=== PATIENT | female | born 1990 ===

== ENCOUNTER 2018-05-07 22:44 | Emergency (ER) | payer OTHER ==
[2018-05-07 22:53] VITALS: BP 103/64; PULSE 86; RESP 14; TEMP 98.7; O2SAT 97
--- NOTE | 2018-05-07 23:02 | C.PDOC ---
History Of Present Illness 27 yo female come in for evaluation of Left ankle pain developed few hours [employer] after sustained twisting injury. Pt reports, pain is localized over lateral malleolus of Left ankle, worse with weight bearing. Otherwise, pt denies complete fall, head injury, neck pain, denies deformity, weakness, swelling, sensory or vascular deficits to Left ankle and foot. Ambulate to ED w/ assistance of crutches. Time Seen by Provider: 05/07/18 22:53 Chief Complaint (Nursing): Lower Extremity Problem/Injury History Per: Patient Past Medical History Reviewed: Historical Data, Nursing Documentation, Vital Signs Vital Signs: Last Vital Signs Temp 98.7 F 05/07/18 22:49 Pulse 86 05/07/18 22:49 Resp 14 05/07/18 22:49 BP 103/64 05/07/18 22:49 Pulse Ox 97 05/07/18 23:06 - Medical History PMH: No Chronic Diseases Family History: States: No Known Family Hx - Social History Hx Alcohol Use: Yes Hx Substance Use: No - Immunization History Hx Tetanus Toxoid Vaccination: No Hx Influenza Vaccination: No Hx Pneumococcal Vaccination: No Review Of Systems Except As Marked, All Systems Reviewed And Found Negative. Constitutional: Negative for: Fever, Chills Cardiovascular: Negative for: Chest Pain Musculoskeletal: Positive for: Foot Pain. Negative for: Neck Pain, Back Pain Skin: Negative for: Lesions, Bruising Neurological: Negative for: Weakness, Numbness, Altered Mental Status, Headache Physical Exam - Physical Exam Appears: Well, Non-toxic, No Acute Distress Skin: Normal Color, Warm, No Ecchymosis Head: Atraumatic, Normacephalic Eye(s): bilateral: PERRL Extremity: Normal ROM (mild discomofrt to Left ankle flexion dyue to pain, no neurovascular deficits distally to injury.), Tenderness (lateral malleolus Left ankle. No deformity, no skin changes, no edema), No Pedal Edema, No Calf Tenderness, Capillary Refill (less than 2ec to Left foot), No Deformity, No Swelling Neurological/Psych: Oriented x3, Normal Speech, Normal Motor, Normal Sensation, Normal Reflexes ED Course And Treatment O2 Sat by Pulse Oximetry: 97 - Other Rad Left ankle and foot X-Ray: Interpreted by Me, Viewed By Me Interpretation: (-) acute fx or disloctaion Progress Note: On re-eval, pt is afebrile, hemodynamicaly stable. Non-toxic. left ankle: tenderness over lateral malleolus, No edema, no deformity. FAROM, no neurovascular deficits. Imaging review (-) acute fx. Air cast applied to Left ankle. Pt arrived to ED with crutches. Pt has clinical findings c/w ankle sprain. Pt advised. ref. to f/u with Podiatry Clinic on Mondays' fr further eval/tx. Disposition Counseled Patient/Family Regarding: Studies Performed, Diagnosis, Need For Followup, Rx Given - Disposition Referrals: [facility] [Outside] Disposition: HOME/ ROUTINE Disposition Time: 23:32 Condition: STABLE Additional Instructions: RICE-REST,ICE,COMPRESSION,ELEVATION SPLINT FOR 1 WEEK CRUTCHES NEED TAKE PAIN MEDICATION NEED FOLLOW UP WITH PODIATRY CLINIC ON THURSDAY FROM NOON-3PM FOR FURTHER EVALUATION NEED RETURN IF ANY NEW CHANGES. Prescriptions: Ibuprofen [Motrin Tab] 600 mg PO TID #10 tab Instructions: Ankle Sprain Forms: PROTEIN LOUNGE ([place]) - Clinical Impression Clinical Impression: Ankle sprain
--- NOTE | 2018-05-08 11:21 | RAD ---
Date of service: 05/07/2018 PROCEDURE: Left Foot Radiographs. HISTORY: injury COMPARISON: None. FINDINGS: BONES: Normal. No fracture. JOINTS: Normal. SOFT TISSUES: Normal. OTHER FINDINGS: None. IMPRESSION: Normal left foot radiographs.
--- NOTE | 2018-05-08 11:32 | RAD ---
Date of service: 05/07/2018 PROCEDURE: Left Ankle Radiographs. HISTORY: injury COMPARISON: None FINDINGS: BONES: Normal. No fracture. JOINTS: Normal. No osteoarthritis. Ankle mortise maintained. Talar dome intact SOFT TISSUES: Normal. OTHER FINDINGS: None. IMPRESSION: No evidence of acute fracture or dislocation.
== END 2018-05-07 23:50 | disposition home or self-care (01) ==
LOC: C.ER 22:44
DX: S93.402A Sprain of unspecified ligament of left ankle, initial encounter (principal); X50.1XXA Overexertion from prolonged static or awkward postures, initial encounter; Y92.9 Unspecified place or not applicable